=== PATIENT | female | born 1940 | race Caucasian/White ===

== ENCOUNTER 2017-06-30 09:14 | Emergency (ER) | payer MEDICARE, OTHER ==
[2017-06-30] MEDS ORDERED: HYDROcodone/Acetaminophen 5/325 mg Tablet ONE (10:38)
--- NOTE | 2017-06-30 10:43 | RAD ---
TWO VIEWS LEFT HUMERUS: Comparison: Left elbow radiograph. History: Tripped and fell last night with left arm pain. FINDINGS: Two views of the left humerus shows a fracture of the distal humerus which is better characterized on the elbow series. Surrounding soft tissue swelling is seen. No dislocation of the shoulder or elbow are seen. IMPRESSION: Left distal humerus fracture. POS: [facility]
--- NOTE | 2017-06-30 10:45 | RAD ---
LEFT ELBOW FOUR VIEW SERIES: Indication: Fall with injury. Pain. FINDINGS: There is a displaced fracture centered at the distal left humerus involving the medial and lateral co ndyles. Joint capsular distention and overlying soft tissue prominence is present. There is osteophyt osis. IMPRESSION: Distal humeral fracture involving the medial and lateral condyles. Fracture involvement does approxim ate the articular surface. Recommend orthopedic consultation. POS: [facility]
== END 2017-06-30 10:45 | disposition home or self-care (01) ==
LOC: SCSER 09:14
DX: S42.452A Displaced fracture of lateral condyle of left humerus, initial encounter for closed fracture (principal); S42.462A Displaced fracture of medial condyle of left humerus, initial encounter for closed fracture; E78.5 Hyperlipidemia, unspecified; Z79.899 Other long term (current) drug therapy; W18.30XA Fall on same level, unspecified, initial encounter
CPT/HCPCS: 24576

== ENCOUNTER 2017-07-06 12:59 | Outpatient (CLI) | payer MEDICARE, OTHER | END 2017-07-06 13:00 | disposition home or self-care (01) | LOC: BICCT 12:59 | PROVIDERS: ATTEND Orthopaedic Surgery | DX: S42.409A Unspecified fracture of lower end of unspecified humerus, initial encounter for closed fracture (principal); S42.462A Displaced fracture of medial condyle of left humerus, initial encounter for closed fracture; M25.422 Effusion, left elbow ==